=== PATIENT | male | born 1995 | race Caucasian/White ===

== ENCOUNTER 2018-03-23 17:30 | Emergency (ER) | payer BC ==
[2018-03-23] MEDS ORDERED: Midazolam 1 MG/ML 2 ML SDV IVPUSH ONE ×2 (17:42→18:15)
[2018-03-23] MEDS ORDERED: Sodium Chloride 0.9% 10 ML Syringe FLUSH PRN (17:42)
[2018-03-23] MEDS ORDERED: Etomidate 2 MG/ML 10 ML SDV IVPUSH ONE (17:42)
[2018-03-23 17:48] VITALS: BP 148/103
[2018-03-23] MEDS ORDERED: Meperidine PF 50 MG/ML Syringe IVPUSH ONE (18:14)
[2018-03-23] MEDS ORDERED: fentaNYL 100 MCG/2 ML SDV IVPUSH ONE (18:17)
--- NOTE | 2018-03-23 18:55 | EDM.PDOC ---
ED HPI GENERAL MEDICAL PROBLEM - General Chief Complaint: Upper Extremity Injury/Pain Stated Complaint: right shoulder pain Time Seen by Provider: 03/23/18 17:30 Source of Information: Reports: Patient History Limitations: Reports: No Limitations - History of Present Illness INITIAL COMMENTS - FREE TEXT/NARRATIVE: patient states he was lifting his bed at home when he dislocated his right shoulder he complains of severe right shoulder recio 9/10 sharp shooting and worse with movement. He states that about 6 weeks ago he dislocated this same shoulder and it was reduced and placed in sling and swathe as directed. Onset: Today Onset Date: 03/23/18 Onset Time: 17:00 Location: Reports: Upper Extremity, Right Quality: Reports: Sharp, Stabbing Severity: Severe Improves with: Reports: None Worsens with: Reports: None Right Shoulder Pain Score (Numeric/FACES): 9 - Related Data Allergies Allergy/AdvReac Type Severity Reaction Status Date / Time No Known Allergies Allergy Verified 03/23/18 17:36 Home Meds: Home Meds RX: Venlafaxine [Effexor XR] 150 mg PO DAILY 02/18/14 [History] Dextroamphetamine/Amphetamine [Adderall] 20 mg PO DAILY 03/31/14 [History] buPROPion HCl [Wellbutrin Xl] 150 mg PO DAILY 03/23/18 [History] Past Medical History - Past Health History Medical/Surgical History: Denies Medical/Surgical History Social & Family History - Tobacco Use Smoking Status *Q: Current Every Day Smoker Years of Tobacco use: 5 Packs/Tins Daily: 0.5 - Caffeine Use Caffeine Use: Reports: None - Recreational Drug Use Recreational Drug Use: No Review of Systems - Review of Systems Review Of Systems: ROS reveals no pertinent complaints other than HPI. ED EXAM, GENERAL - Physical Exam Exam: See Below Exam Limited By: No Limitations General Appearance: Alert, WD/WN, No Apparent Distress Ears: Normal External Exam Nose: Normal Inspection Throat/Mouth: Normal Inspection Head: Atraumatic, Normocephalic Neck: Normal Inspection, Supple, Non-Tender Respiratory/Chest: No Respiratory Distress, Lungs Clear, Normal Breath Sounds Cardiovascular: Normal Peripheral Pulses, Regular Rate, Rhythm, No Edema Extremities: Other (obvious dislocation of the right shoulder ) Neurological: Alert, Oriented, CN II-XII Intact, Normal Cognition, Normal Gait, No Motor/Sensory Deficits Psychiatric: Anxious Skin Exam: Intact, Normal Color, No Rash, Diaphoretic ED TRAUMA EXTREMITY PROCEDURES - Joint Reduction Site: Shoulder (R) Sedation: Other (50mg Fentnyl and 4 mg Versed IV) Number of Attempts: Other: (multiple) Joint Reduction Complication Description: traction / counter traction was attempted- without sucess patient tolerated well. Patient rolled to prone position and gravity and sand bag approached attempted and unsuccessful - Discussed case with Dr. Hdez and then Jorge Matamoros and he will come in to help with the reduction. Jorge arrived and after multiple attempts at reduction We used constant pressure on the humeral head/ counter traction and external rotation of the right arm to achieve reduction of the right shoulder - patient has no pain and is NVS intact at d/c - Splinting Right Upper Extremity Pre-Procedure NV Status: Normal Post-Procedure NV Status: Normal Splint Material: Other (arm strap for shoulder dislocation) Applied & Form Fitted By: Provider Provider Post-Splint Application NV Check: NV Status Normal, Good Position Complications: No Course - Vital Signs Last Recorded V/S: Last Vital Signs Temp 96.9 F 03/23/18 17:45 Pulse 84 03/23/18 17:45 Resp 20 03/23/18 17:45 BP 148/103 H 03/23/18 17:45 Pulse Ox 96 03/23/18 17:45 - Orders/Labs/Meds Orders: Active Orders 24 hr Category Date Time Status Peripheral IV Care [RC] . DIRECTED Care 03/23/18 17:42 Active Shoulder 1V Rt [CR] Stat Exams 03/23/18 17:41 Taken Sodium Chloride 0.9% [Saline Flush] Med 03/23/18 17:42 Active 10 ml FLUSH ASDIRECTED PRN Peripheral IV Insertion Adult [OM.PC] Routine Oth 03/23/18 17:42 Ordered Medication Orders Sodium Chloride (Saline Flush) 10 ml FLUSH ASDIRECTED PRN PRN Reason: Keep Vein Open Meds: Medications Generic Name Dose Route Start Last Admin Trade Name Freq PRN Reason Stop Dose Admin Sodium Chloride 10 ml 03/23/18 17:42 Saline Flush FLUSH ASDIRECTED PRN Keep Vein Open Discontinued Medications Generic Name Dose Route Start Last Admin Trade Name Freq PRN Reason Stop Dose Admin Etomidate 20 mg 03/23/18 17:42 03/23/18 18:25 Amidate IVPUSH 03/23/18 17:43 Not Given ONETIME ONE Fentanyl 50 mcg 03/23/18 18:17 03/23/18 18:20 Sublimaze IVPUSH 03/23/18 18:18 50 mcg ONETIME ONE Administration Meperidine HCl 50 mg 03/23/18 18:14 03/23/18 18:25 Demerol IVPUSH 03/23/18 18:15 Not Given ONETIME ONE Midazolam HCl 2 mg 03/23/18 17:42 03/23/18 18:26 Versed 1 Mg/Ml IVPUSH 03/23/18 17:43 Not Given ONETIME ONE Midazolam HCl 4 mg 03/23/18 18:15 03/23/18 18:24 Versed 1 Mg/Ml IVPUSH 03/23/18 18:16 4 mg ONETIME ONE Administration - Radiology Interpretation Free Text/Narrative:: Prior to reduction xrays showed: anterior right shoulder dislocation Post reduction xrays show good alignment and no fracture in the right shoulder. Reviewed by myself as well as Jorge CHRISTIE Departure - Departure Time of Disposition: 19:35 Disposition: Home, Self-Care 01 Condition: Good, Poor Clinical Impression: Dislocation, shoulder, anterior Qualifiers: Encounter type: subsequent encounter Laterality: right Qualified Code(s): S43.014D - Anterior dislocation of right humerus, subsequent encounter - Discharge Information *PRESCRIPTION DRUG MONITORING PROGRAM REVIEWED*: No *COPY OF PRESCRIPTION DRUG MONITORING REPORT IN PATIENT TERESE: No Instructions: Shoulder Dislocation, [id number] Forms: ED Department Discharge Additional Instructions: wear sling / for the next 2 weeks then follow up with Jorge CHRISTIE for reevaluation Tylenol and motrin for recio. Return if worse. - My Orders Last 24 Hours: My Active Orders 03/23/18 17:41 Shoulder 1V Rt [CR] Stat 03/23/18 17:42 Peripheral IV Care [RC] . DIRECTED Sodium Chloride 0.9% [Saline Flush] 10 ml FLUSH ASDIRECTED PRN Peripheral IV Insertion Adult [OM.PC] Routine - Assessment/Plan Last 24 Hours: My Active Orders 03/23/18 17:41 Shoulder 1V Rt [CR] Stat 03/23/18 17:42 Peripheral IV Care [RC] . DIRECTED Sodium Chloride 0.9% [Saline Flush] 10 ml FLUSH ASDIRECTED PRN Peripheral IV Insertion Adult [OM.PC] Routine
== END 2018-03-23 19:48 | disposition home or self-care (01) ==
LOC: CC.ED 17:30
DX: S43.014A Anterior dislocation of right humerus, initial encounter (principal); F17.210 Nicotine dependence, cigarettes, uncomplicated; Z79.899 Other long term (current) drug therapy; X50.0XXA Overexertion from strenuous movement or load, initial encounter
CPT/HCPCS: 23650; 73020-RT; 73030-RT; 96374; 96375; 99283; J2250; J3010

== ENCOUNTER 2020-01-20 06:45 | Emergency (ER) | payer BC ==
[2020-01-20] MEDS ORDERED: Naloxone 2 MG/2 ML Syringe IVPUSH ONE (06:51)
[2020-01-20] MEDS ORDERED: EPINEPHrine 1:10,000 1 MG/10 ML Syringe IVPUSH ONE ×2 (06:56→07:23)
--- NOTE | 2020-01-20 07:50 | EDM.PDOC ---
ED HPI GENERAL MEDICAL PROBLEM - General Chief Complaint: CPR in Progress Stated Complaint: cpr Time Seen by Provider: 01/20/20 06:45 Source of Information: Reports: EMS, Family History Limitations: Reports: Other (CPR) - History of Present Illness INITIAL COMMENTS - FREE TEXT/NARRATIVE: Benny was brought into ED via EMS after they were paged out for CPR in progress. Initially EMS was paged to patients house for CPR in progress. Upon arrival to scene, officers were performing chest compressions. Patient did not receive any breaths with compressions as he had large amount of vomit. EMS did not report note of any suspicious findings on scene, nor were they notified by family on scene of any details. IT was reported that family heard him around 0300. Patients father then got up around 0600 and found him. They continued BLS until arrival to hospital. Upon arrival patients pupils were fixed and dilated. Patient was cool to touch and rigor mortis present. Jaw was clenched shut so bagging patient was very difficult. He also had large amount of vomit with inability to suction fully due to clenched jaw. IO was placed immediately and patient was given 1 mg epinephrine and 5 mg Narcan. Patient remained asystole. Did opt to give patient additional dose of epinephrine. I did contact patient's father and updated him on condition. He was agreeable with calling . CPR stopped. Time of 0658. I did call [employer] and requested autopsy. Patient's brother in law, who is also mortician, presented shortly after to take body. He then reported that patients cause of was suicide. He was found by his father in their home hanging at 0609. Family declines autopsy, which is reasonable with known cause of . Patient has longstanding issues with mental health as well as drug abuse. Did opt to proceed with toxicology. Onset: Today, Unknown/Unsure Onset Date: 01/20/20 Duration: Other (ongoing CPR) Location: Reports: Generalized Associated Symptoms: Reports: Nausea/Vomiting Treatments SURFACE TO AIR WEAPONS OFFICER: Reports: CPR - Related Data Allergies Allergy/AdvReac Type Severity Reaction Status Date / Time No Known Allergies Allergy Verified 01/20/20 07:15 Home Meds: Home Meds Venlafaxine [Effexor XR] 150 mg PO DAILY 02/18/14 [History] Dextroamphetamine/Amphetamine [Adderall] 20 mg PO DAILY 03/31/14 [History] buPROPion HCL [Wellbutrin Xl] 150 mg PO DAILY 03/23/18 [History] Past Medical History - Past Health History Medical/Surgical History: Denies Medical/Surgical History Psychiatric History: Reports: Addiction, Depression Social & Family History - Caffeine Use Caffeine Use: Reports: None - Recreational Drug Use Recreational Drug Use: Yes Recreational Drug Type: Reports: Marijuana/Hashish, Methamphetamine ED ROS GENERAL - Review of Systems Review Of Systems: Unable To Obtain Reason Not Obtained: unresponsive, CPR in progress ED EXAM, CPR - Physical Exam Exam: See Below Limited By: Unresponsive General Appearance: Other (unresponsive, CPR in progress) Eye Exam: Bilateral Eye: Other (fixed and dilated) Nose: Other (vomit) Throat/Mouth: Other (jaw clenched, vomit) Head: Atraumatic, Normocephalic Neck: Other (whitened area to neck fold extending from left side to mid neck) Cardiovascular: Pulse with Compression, CPR In Progress GI/Abdominal Exam: Distended Extremities: Other (cool to touch, stiff) Neurological: Unresponsive Skin Exam: Cool, Cyanosis Course - Orders/Labs/Meds Meds: Medications Discontinued Medications Generic Name Dose Route Start Last Admin Trade Name Freq PRN Reason Stop Dose Admin Epinephrine HCl 1 mg 01/20/20 07:23 01/20/20 06:50 Epinephrine 1:10,000 IVPUSH 01/20/20 07:24 1 mg ONETIME ONE Administration Epinephrine HCl 1 mg 01/20/20 06:56 01/20/20 06:56 Epinephrine 1:10,000 IVPUSH 01/20/20 06:57 1 mg ONETIME ONE Administration Naloxone HCl 2 mg 01/20/20 06:51 01/20/20 06:51 Narcan IVPUSH 01/20/20 06:52 2 mg ONETIME ONE Administration Departure - Departure Time of Disposition: 06:58 Disposition: 20 Preliminary Cause of *Q: Other_Special Instruction (suicide by hanging) Clinical Impression: Cardiac arrest Suicide by hanging Qualifiers: Encounter type: initial encounter Qualified Code(s): T71.162A - Asphyxiation due to hanging, intentional self-harm, initial encounter - Discharge Information *PRESCRIPTION DRUG MONITORING PROGRAM REVIEWED*: Not Applicable *COPY OF PRESCRIPTION DRUG MONITORING REPORT IN PATIENT TERESE: Not Applicable Referrals: Abdifatah Matamoros PA-C [Primary Care Provider] - Forms: ED Department Discharge - Problem List & Annotations (1) Suicide by hanging SNOMED Code(s): 010357093 Code(s): T71.162A - ASPHYXIATION DUE TO HANGING, INTENTIONAL SELF-HARM, INIT Status: Acute Qualifiers: Encounter type: initial encounter Qualified Code(s): T71.162A - Asphyxiation due to hanging, intentional self-harm, initial encounter (2) Cardiac arrest SNOMED Code(s): 262144109 Code(s): I46.9 - CARDIAC ARREST, CAUSE UNSPECIFIED Status: Acute - Problem List Review Problem List Initiated/Reviewed/Updated: Yes - Assessment/Plan Assessment:: Suicide by hanging Cardiac Arrest Plan: Patient presented via EMS with unknown time of arrest. Was found hanging by father at 0600. Had last been heard from around 0300. Chest compressions initiated on scene by officers and continued by BLS crew until arrival to hospital. Initially did not know patient had hung himself. Patient remained in asystole. Pupils were fixed and dilated at time of hospital arrival. Jaw clenched and patient stiff and cool to touch. Patient did receive Narcan and 2 doses epi via IO without success. Time of 0658. Atomizer Assembler notified. Family decline autopsy. Did proceed with toxicology. Body released to mortician.
== END 2020-01-20 08:00 | disposition expired ==
LOC: CC.ED 06:45
DX: I46.9 Cardiac arrest, cause unspecified (principal); F32.9 Major depressive disorder, single episode, unspecified; Z79.899 Other long term (current) drug therapy
CPT/HCPCS: 92950; 96374; 96375; 99285; J0171; J2310